=== PATIENT | female | born 1995 | race Caucasian/White ===

== ENCOUNTER 2017-10-27 04:19 | Emergency (ER) | payer MEDICAID, OTHER ==
[2017-10-27 04:27] VITALS: TEMP 97.9; O2SAT 100
--- NOTE | 2017-10-27 04:27 | EDPHY ---
H & P Time Seen by Provider: 10/27/17 06:15 HPI/ROS: HPI CHIEF COMPLAINT: Nausea vomiting HISTORY OF PRESENT ILLNESS: This patient very pleasant 22-year-old female otherwise healthy without any significant medical history she presents emergency room with nausea vomiting. Patient reports that she had a shrimp dish at [facility] around 6:30 p.m.. Around midnight she started developing nausea with vomiting. She had 4-5 episodes of vomiting nonbilious nonbloody. Denies any diarrhea. Complains of diffuse crampy abdominal pain. No focal area pain. Denies fever. Denies chest pain or shortness of breath. Past Medical History: Denies medical history Past Surgical History: Denies surgical history Social History: Smokes marijuana, drinks alcohol. 2 drinks earlier this evening. Family History: Noncontributory ROS REVIEW OF SYSTEMS: A comprehensive 10 point review of systems is otherwise negative aside from elements mentioned in the history of present illness. Exam Constitutional appears well nontoxic, triage nursing summary reviewed, vital signs reviewed, awake/alert. Eyes normal conjunctivae and sclera, EOMI, PERRLA. HENT normal inspection, atraumatic, moist mucus membranes, no epistaxis, neck supple/ no meningismus, no raccoon eyes. Respiratory clear to auscultation bilaterally, normal breath sounds, no respiratory distress, no wheezing. Cardiovascular rate normal, regular rhythm, no murmur, no edema, distal pulses normal. Gastrointestinal soft, non-tender, no rebound, no guarding, normal bowel sounds, no distension, no pulsatile mass. Genitourinary no CVA tenderness. Musculoskeletal no midline vertebral tenderness, full range of motion, no calf swelling, no tenderness of extremities, no meningismus, good pulses, neurovascularly intact. Skin pink, warm, & dry, no rash, skin atraumatic. Neurologic awake, alert and oriented x 3, AAOx3, moves all 4 extremities equally, motor intact, sensory intact, CN II-XII intact, normal cerebellar, normal vision, normal speech. Psychiatric normal mood/affect. Heme/Lymph/Immune no lymphadenopathy. Differential Diagnosis: Includes but is not limited to and food-borne illness, enteritis, acute nausea vomiting from GI illness, pancreatitis, gallbladder disease, acute appendicitis, colitis, diverticulitis, perforated bowel, bowel obstruction Medical Decision Making: Plan for this patient IV establishment IV fluid bolus 2 L normal saline, IV Zofran for nausea, IV Pepcid for upset stomach, check basic blood work including lipase, LFTs, white count, urinalysis, and re-evaluate. Re-evaluation: 0510: Re-evaluation at this time abdomen is soft nontender. She is currently receiving IV fluids. However she received Zofran and Pepcid and is feeling much better. Her nausea has subsided. She has not had any vomiting here. Abdomen soft. Nontender. 0545: Re-examination patient feeling slightly better but now tells me she has some periumbilical abdominal pain. Given her white count I will proceed with CT scan abdomen pelvis with IV contrast to rule out early or acute appendicitis. CT scan abdomen pelvis with IV contrast shows enteritis normal appendix no evidence of acute appendicitis. 0615: Patient feeling better after IV fluids. Nausea medicine pain medicine. Return precautions discussed with her. She understands return emergency room she develops worsening abdominal pain fever vomiting. Re-examination at this time abdomen soft nontender. Source: Patient Constitutional: Initial Vital Signs Temperature (C) 36.6 C 10/27/17 04:24 Heart Rate 100 10/27/17 04:24 Respiratory Rate 18 10/27/17 04:24 Blood Pressure 138/89 H 10/27/17 04:24 O2 Sat (%) 100 10/27/17 04:24 O2 Delivery Mode Room Air Allergies/Adverse Reactions: No Known Allergies Allergy (Unverified 10/27/17 04:27) Home Medications: Medication Instructions Recorded Ondansetron HCl [Zofran] 4 mg PO Q4-6PRN PRN #10 tablet 10/27/17 Medical Decision Making - Data Points Laboratory Results: Laboratory Results 10/27/17 04:30 10/27/17 04:30 10/27/17 10/27/17 10/27/17 04:30 04:30 04:30 WBC 15.04 10^3/uL H 10^3/uL (3.80-9.50) RBC 5.20 10^6/uL 10^6/uL (4.18-5.33) Hgb 14.9 g/dL g/dL (12.6-16.3) Hct 44.1 % % (38.0-47.0) MCV 84.8 fL fL (81.5-99.8) MCH 28.7 pg pg (27.9-34.1) MCHC 33.8 g/dL g/dL (32.4-36.7) RDW 12.7 % % (11.5-15.2) Plt Count 241 10^3/uL 10^3/uL (150-400) MPV 9.8 fL fL (8.7-11.7) Neut % (Auto) 80.2 % H % (39.3-74.2) Lymph % (Auto) 14.1 % L % (15.0-45.0) [place] % (Auto) 4.7 % % (4.5-13.0) Eos % (Auto) 0.4 % L % (0.6-7.6) Baso % (Auto) 0.3 % % (0.3-1.7) Nucleat RBC Rel Count 0.0 % % (0.0-0.2) Absolute Neuts (auto) 12.07 10^3/uL H 10^3/uL (1.70-6.50) Absolute Lymphs (auto) 2.12 10^3/uL 10^3/uL (1.00-3.00) Absolute Monos (auto) 0.70 10^3/uL 10^3/uL (0.30-0.80) Absolute Eos (auto) 0.06 10^3/uL 10^3/uL (0.03-0.40) Absolute Basos (auto) 0.04 10^3/uL 10^3/uL (0.02-0.10) Absolute Nucleated RBC 0.00 10^3/uL 10^3/uL (0-0.01) Immature Gran % 0.3 % % (0.0-1.1) Immature Gran # 0.05 10^3/uL 10^3/uL (0.00-0.10) Sodium 144 mEq/L mEq/L (135-145) Potassium 3.7 mEq/L mEq/L (3.5-5.2) Chloride 105 mEq/L mEq/L (97-110) Carbon Dioxide 25 mEq/l mEq/l (22-31) Anion Gap 14 mEq/L mEq/L (8-16) BUN 14 mg/dL mg/dL (7-23) Creatinine 0.8 mg/dL mg/dL (0.6-1.0) Estimated GFR > 60 Glucose 96 mg/dL mg/dL (70-100) Calcium 10.1 mg/dL mg/dL (8.5-10.4) Total Bilirubin 0.7 mg/dL mg/dL (0.1-1.4) Conjugated Bilirubin 0.3 mg/dL mg/dL (0.0-0.5) Unconjugated Bilirubin 0.4 mg/dL mg/dL (0.0-1.1) AST 25 IU/L IU/L (14-46) ALT 37 IU/L IU/L (9-52) Alkaline Phosphatase 70 IU/L IU/L (38-126) Total Protein 7.8 g/dL g/dL (6.3-8.2) Albumin 4.8 g/dL g/dL (3.5-5.0) Lipase 80 IU/L IU/L (23-300) Beta HCG, Qual NEGATIVE Medications Given: Discontinued Medications Famotidine (Pepcid) 20 mg IVP EDNOW ONE Stop: 10/27/17 04:31 Last Admin: 10/27/17 04:39 Dose: 20 mg Hydromorphone HCl (Dilaudid) 0.5 mg IVP EDNOW ONE Stop: 10/27/17 05:44 Last Admin: 10/27/17 06:05 Dose: 0.5 mg Sodium Chloride (Ns) 1,000 mls @ 0 mls/hr IV EDNOW ONE; Wide Open PRN Reason: Protocol Stop: 10/27/17 04:31 Last Admin: 10/27/17 04:39 Dose: 1,000 mls Sodium Chloride (Ns) 1,000 mls @ 0 mls/hr IV EDNOW ONE; Wide Open PRN Reason: Protocol Stop: 10/27/17 04:31 Last Admin: 10/27/17 04:39 Dose: 1,000 mls Ondansetron HCl (Zofran) 4 mg IVP EDNOW ONE Stop: 10/27/17 04:31 Last Admin: 10/27/17 04:39 Dose: 4 mg Departure - Departure Disposition: Home, Routine, Self-Care Clinical Impression: Nausea and vomiting Qualifiers: Vomiting type: unspecified Vomiting Intractability: non-intractable Qualified Code(s): R11.2 - Nausea with vomiting, unspecified Condition: Good Instructions: Acute Nausea and Vomiting (ED) Additional Instructions: 1. Return emergency room if you have worsening symptoms includes high fever, worsening vomiting, worsening abdominal pain. 2. Potter diet over the next 24-48 hours no spicy fatty greasy foods. Referrals: NONE *PRIMARY CARE P,. [Primary Care Provider] - As per Instructions Prescriptions: Ondansetron HCl [Zofran] 4 mg PO Q4-6PRN PRN #10 tablet PRN Reason: Nausea/Vomiting, Use 1st
[2017-10-27] MEDS ORDERED: NS 1,000 ML IV ONE ×2 (04:30)
[2017-10-27] MEDS ORDERED: ONDANSETRON 4 MG/2 ML VIAL IVP ONE (04:30)
[2017-10-27] MEDS ORDERED: FAMOTIDINE 20 MG/2 ML SDV IVP ONE (04:30)
[2017-10-27 04:47] LABS: PLATELET COUNT 241 10^3/uL (150-400)
[2017-10-27] MEDS ORDERED: HYDROmorphONE/DILAUDID 2 MG/ML INJ IVP ONE (05:43)
[2017-10-27] MEDS ORDERED: IOPAMIDOL (ISOVUE-300) 100 ML BTL ONE (05:50)
[2017-10-27 06:07] VITALS: BP 118/68; PULSE 70; RESP 16
== END 2017-10-27 06:44 | disposition home or self-care (01) ==
DX: R11.2 Nausea with vomiting, unspecified (principal); E86.9 Volume depletion, unspecified
CPT/HCPCS: 96374; J1170; J2405; Q9967